=== PATIENT | female | born 1945 | race Caucasian/White ===

== ENCOUNTER 2017-03-31 10:54 | Emergency (ER) | payer OTHER, BC ==
[~2017-03-31] VITALS: Ht 144.8 cm; Wt 48.1 kg
[~2017-03-31 10:54] MED LIST: LEVO50TA77 PO; LOSA25TA3 PO; SIMV10TA2 PO
[2017-03-31 11:04] VITALS: BP_SYST 160
[2017-03-31] MEDS ORDERED: ACETAMINOPHEN 325 MG TABLET PO ONE (11:45)
[2017-03-31] MEDS ORDERED: BACITRACIN 1 GM OINT TP ONE (12:00)
== END 2017-03-31 12:05 | disposition home or self-care (01) ==
LOC: SED 10:54
DX: S60.221A Contusion of right hand, initial encounter (principal); I10 Essential (primary) hypertension; Z88.0 Allergy status to penicillin; Z88.6 Allergy status to analgesic agent; Z90.89 Acquired absence of other organs; E78.00 Pure hypercholesterolemia, unspecified; Z96.89 Presence of other specified functional implants; W01.10XA Fall on same level from slipping, tripping and stumbling with subsequent striking against unspecified object, initial encounter; Y93.89 Activity, other specified; Y92.89 Other specified places as the place of occurrence of the external cause; Y99.8 Other external cause status
CPT/HCPCS: 99284

== ENCOUNTER 2018-07-13 08:50 | Emergency (ER) | payer OTHER, BC ==
[~2018-07-13] VITALS: Ht 144.8 cm; Wt 53.1 kg
[~2018-07-13 08:50] MED LIST changes: -LEVO50TA77 PO; +SYN50 PO
[2018-07-13 08:55] VITALS: BP_SYST 171
--- NOTE | 2018-07-13 09:04 | NUR ---
Pt placed in bed 5
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
--- NOTE | 2018-07-13 09:24 | NUR ---
ER at bedside examining patient.
[2018-07-13] MEDS ORDERED: LORazepam 1 MG TABLET PO ONE (09:45)
--- NOTE | 2018-07-13 10:15 | NUR ---
Patient given ativan as ordered. Patient at bedside for comfort and safety.
--- NOTE | 2018-07-13 11:44 | NUR ---
Patient given written and verbal discharge instructions and verbalizes understanding. ER MD discussed with patient the results and treatment provided. Patient in stable condition. ID arm band removed. Rx of Ativan given. Patient educated on pain management and to follow up with PMD. Pain Scale 0/10. Opportunity for questions provided and answered.
[2018-07-13 11:50] VITALS: BP_SYST 130
== END 2018-07-13 11:44 | disposition home or self-care (01) ==
LOC: SED 08:50
DX: G44.209 Tension-type headache, unspecified, not intractable (principal); I10 Essential (primary) hypertension; E78.00 Pure hypercholesterolemia, unspecified; Z88.0 Allergy status to penicillin; Z88.6 Allergy status to analgesic agent; Z79.899 Other long term (current) drug therapy; Z95.0 Presence of cardiac pacemaker
CPT/HCPCS: 99283

== ENCOUNTER 2019-12-03 08:00 | Outpatient (CLI) | payer OTHER, BC | END 2019-12-03 20:25 | disposition home or self-care (01) | LOC: SUS 08:00 | PROVIDERS: ATTEND Family Medicine | DX: R93.89 Abnormal findings on diagnostic imaging of other specified body structures (principal); I70.0 Atherosclerosis of aorta | CPT/HCPCS: 76700-TC; 76830-TC; 76857 ==

== ENCOUNTER 2019-12-05 11:27 | Outpatient (CLI) | payer OTHER, BC | END 2019-12-05 18:52 | disposition home or self-care (01) | LOC: SCT 11:27 | PROVIDERS: ATTEND Family Medicine | DX: K57.30 Diverticulosis of large intestine without perforation or abscess without bleeding (principal); N85.8 Other specified noninflammatory disorders of uterus; I70.90 Unspecified atherosclerosis ==

== ENCOUNTER 2021-05-05 08:38 | Emergency (ER) | payer BC ==
[~2021-05-05] VITALS: Ht 144.8 cm; Wt 48.5 kg
[2021-05-05 08:38] VITALS: BP_SYST 161
--- NOTE | 2021-05-05 08:38 | NUR ---
BROUGHT BACK TO BED #1 AND TRIAGED. REPORT GIVEN TO EDDY
--- NOTE | 2021-05-05 08:50 | NUR ---
Pt came to ER for R finger lac bleeding controlled. Pt resting in [facility] at this time, no distress noted, awaiting
--- NOTE | 2021-05-05 08:55 | NUR ---
ER at bedside examining patient.
[2021-05-05] MEDS ORDERED: LIDOCAINE 1% 10 MG/ML, 20 ML MDV INJ ONE (09:00)
[2021-05-05] MEDS ORDERED: BACITRACIN 1 GM OINT TP ONE (09:00)
[2021-05-05] MEDS ORDERED: DIPH-TET-PERTUS Vaccine 0.5 ML VIAL (ADACEL) I.M. ONE (09:00)
[2021-05-05 09:20] VITALS: BP_SYST 161
--- NOTE | 2021-05-05 09:20 | NUR ---
Patient given written and verbal discharge instructions and verbalizes understanding. ER MD discussed with patient the results and treatment provided. Patient in stable condition. ID arm band removed. No Rx given. Patient educated on pain management and to follow up with PMD. Pain Scale 0/10. Opportunity for questions provided and answered. Medication side effect fact sheet provided.
== END 2021-05-05 09:20 | disposition home or self-care (01) ==
LOC: SED 08:38
DX: S61.214A Laceration without foreign body of right ring finger without damage to nail, initial encounter (principal); I10 Essential (primary) hypertension; E78.00 Pure hypercholesterolemia, unspecified; Z88.0 Allergy status to penicillin; Z88.6 Allergy status to analgesic agent; Z79.899 Other long term (current) drug therapy; W25.XXXA Contact with sharp glass, initial encounter; Y93.89 Activity, other specified; Y92.89 Other specified places as the place of occurrence of the external cause; Y99.8 Other external cause status
CPT/HCPCS: 12001; 90471; 90715; 99283; J2001